=== PATIENT | male | born 1985 ===

== ENCOUNTER 2020-09-30 08:35 | Emergency (ER) | payer SELFPAY ==
[2020-09-30 08:45] VITALS: BP 95/69; PULSE 95; RESP 18; TEMP 36.4; O2SAT 99
--- NOTE | 2020-09-30 09:02 | PC.NURSE ---
Initial contact with patient. Pt is handcuffed with police detention attendant at bedside. Pt is refusing a DUI kit. Pt asked if he has injuries that he would like to see a physician for, and pt states no. Per officer at bedside pt is needing an exam for medical clearance to see if fit for confinement . Eleazar Mayo RN made aware.
--- NOTE | 2020-09-30 09:08 | PC.NURSE ---
Pt continues to refuse to be seen by ERP. Continues to refuse DUI kit. Pt ambulatory out of facility with [employer] officer.
== END 2020-09-30 09:15 | disposition left against medical advice (07) ==
LOC: ANHED 09:27
DX: Z04.89 Encounter for examination and observation for other specified reasons (principal)
CPT/HCPCS: 99199